=== PATIENT | female | born 1995 ===

== ENCOUNTER 2024-11-26 10:39 | Inpatient (IN) ==
[2024-11-26] MEDS ORDERED: OXYTOCIN 30 UNITS/NSS 30 UNITS/500 ML BAG IV PRN (11:53)
[2024-11-26] MEDS ORDERED: LIDOCAINE 1% LOCAL 20 ML VIAL INFIL PRN (11:53)
[2024-11-26 12:39] LABS: Hematocrit (blood only) 32.7 % (37.0-47.0); Hemoglobin 9.8 g/dl (12.0-16.0); Mean Corpuscular Hemoglobin 22.1 pg (25.0-34.0); Mean Corpuscular Volume 73.6 fL (80.0-100.0); Platelet Count 270 K/uL (130-400); RDW Standard Deviation 47.1 fL (36.4-46.3); Red Blood Count 4.44 M/uL (4.20-5.40); White Blood Count 11.84 K/ul (4.8-10.8)
[2024-11-26] MEDS: LACTATED RINGER'S 1,000 ML IV PRN (12:56)
[2024-11-27] MEDS: OXYTOCIN 30 UNITS/NSS 30 UNITS/500 ML BAG IV PRN (00:08)
[2024-11-27] MEDS ORDERED: NALOXONE HCL 0.4 MG/1 ML VIAL/CARP IV PRN (02:08)
[2024-11-27] MEDS ORDERED: BUPIVACAINE 0.25% PF 30 ML VIAL EPI STA (02:08)
[2024-11-27] MEDS ORDERED: NALBUPHINE HCL INJ 10 MG/ML AMP IV PRN (02:08)
[2024-11-27] MEDS ORDERED: NALOXONE HCL 1 MG in SODIUM CHLORIDE 0.9% 1,000 ML IV PRN (02:08)
[2024-11-27] MEDS ORDERED: LIDOCAINE 2% MPF LOCAL 5 ML VIAL EPI PRN (02:08)
[2024-11-27] MEDS ORDERED: SODIUM CHLORIDE 0.9% PF INJ 10 ML VIAL EPI PRN (02:08)
[2024-11-27] MEDS ORDERED: diphenhydrAMINE 50 MG/ML VIAL IV PRN (02:08)
[2024-11-27] MEDS ORDERED: ROPIVACAINE 0.5% PF 5 MG/ML 20 ML VIAL EPI PRN (02:08)
[2024-11-27] MEDS ORDERED: SODIUM CHLORIDE 0.9% PF INJ 10 ML VIAL EPI STA (02:08)
--- NOTE | 2024-11-27 02:08 | Anesthesiology Consultation ---
Date of Service November 27, 2024 Assessment & Plan Chart Review Chart Review: Patient NOT seen in Pre Admission Testing and Acceptable Risk for Labor Epidural Consults Requested none History Height/Weight Height: 5 ft 3 in Weight: 97.976 kg Allergies Allergy/AdvReac Type Severity Reaction Status Date / Time No Known Allergies Allergy Verified 11/24/24 14:42 Medications Home Medications Medication Instructions Recorded Confirmed Last Taken [id number]-[id number]-[id number]-FA PO 05/19/24 11/24/24 11/26/24 [ Plus] 0730 ondansetron HCl 4 mg tablet 4 mg PO Q6H PRN nausea and 05/21/24 11/24/24 Unknown vomiting #30 tabs blood sugar diagnostic (ReliOn #150 ea 07/31/24 11/24/24 Unknown Prime Test Strips) blood-glucose meter #1 ea 07/31/24 11/24/24 Unknown lancets #200 ea 07/31/24 11/24/24 Unknown Active Medications Generic Name Dose Route Start Last Admin Trade Name Freq PRN Reason Stop Dose Admin Lactated Ringer's 1,000 mls @ 125 mls/hr 11/26/24 11:53 11/27/24 01:45 Lr IV 11/28/24 11:52 999 mls/hr .Q8H PRN Infusion L&D Protocol Protocol Oxytocin 30 units in 500 mls @ 5 mls/hr 11/26/24 22:32 11/27/24 01:10 Pitocin 30 Units/Nss IV 11/28/24 22:31 0.3 units/hr .Q24H PRN 5 mls/hr Labor Induction/Augmentation Titration Protocol 0.3 UNITS/HR Past Medical History Medical History Varicella vaccination Past Family History Family History Denies family history of Ovarian cancer Breast cancer Colorectal cancer Past Surgical History Surgical History No pertinent past surgical history Social History Smoking Status: Never smoker Do You Dip or Chew Tobacco: No Hx Alcohol Use: No Hx Substance Use: No Physical Exam Vital Signs Last Vital Signs Temp 97.3 F L 11/27/24 00:11 Pulse 100 H 11/27/24 00:50 Resp 16 11/27/24 00:11 BP 125/80 11/27/24 00:50 Testing Laboratory Results 11/26/24 12:18 Blood Type O Positive 11/26/24 12:18 Antibody Screen NEGATIVE 11/26/24 12:18
[2024-11-27] MEDS: fentANYL 2 MCG/ML BUPIVacaine 0.125%-NSS 100ML BAG EPI PRN (02:45)
[2024-11-27] MEDS: LIDOCAINE 2%/EPINEPHRINE 1:200,000 20 ML PF EPI STA (02:48)
[2024-11-27] MEDS: BUPIVACAINE 0.25% PF 30 ML VIAL EPI PRN (02:48)
--- NOTE | 2024-11-27 06:18 | Delivery Summary ---
Vaginal Delivery Summary Date of Service November 27, 2024 Vaginal Delivery Summary and 2nd Degree LAC Patient had a spontaneous vaginal delivery Clinical note the patient arrived in active labor with rupture of membranes GBS negative admitted with gestational diabetes diet-controlled she progressed to first 4 cm then 6 then 8 after that she requested epidural Pitocin was then started for spacing of contractions heart rate category 1 upon delivery of the head there was no nuchal cord fluid was clear gentle traction to find the anterior shoulder was done Talib maneuver was performed including lowering the patient's head this allowed release of the anterior shoulder and then delivery of the baby gentle traction no excessive force live vigorous female cord clamped and cut cord blood obtained placenta removed IV Pitocin started second-degree tear was repaired this was small but repaired with 3-0 Vicryl sponge and instrument counts correct QBL 130 mL [facility] Vaginal Delivery Charge Delivery Type Details: and 2nd Degree LAC
[2024-11-27] MEDS ORDERED: DIPHTHER/TETAN/PERTUS Vaccine (Tdap, Adol/Adult) 0.5mL IM ONE (06:33)
[2024-11-27] MEDS ORDERED: BENZOCAINE 20% SPRY 85 APPLN/85 GM CAN EXT PRN (06:33)
[2024-11-27] MEDS ORDERED: OXYTOCIN 30 UNITS/NSS 30 UNITS/500 ML BAG IV PRN (06:33)
[2024-11-27] MEDS ORDERED: HYDROCORTISONE ACETATE 25 MG SUPP PR PRN (06:33)
[2024-11-27] MEDS: fentANYL 2 MCG/ML BUPIVacaine 0.125%-NSS 100ML BAG ONE (07:55)
[2024-11-27] MEDS: LIDOCAINE 2%/EPINEPHRINE 1:200,000 20 ML PF ONE (07:55)
[2024-11-27] MEDS: BUPIVACAINE 0.25% PF 30 ML VIAL ONE (07:55)
[2024-11-27] MEDS: SODIUM CHLORIDE 0.9% PF INJ 10 ML VIAL ONE (07:55)
--- NOTE | 2024-11-27 08:15 | Anesthesia Procedure Note ---
Date of Service November 27, 2024 Anesthesia Post Epidural Note Vital Signs Vital Signs: Temp Pulse Resp BP Pulse Ox 36.7 C 111 H 20 143/90 H 91 11/27/24 07:45 11/27/24 08:12 11/27/24 07:45 11/27/24 08:12 11/27/24 07:00 Notes Mental Status: alert / awake / arousable and participated in evaluation Patient Amnestic to Procedure: No Nausea / Vomiting: adequately controlled Pain: adequately controlled Airway Patency, RR, SpO2: stable & adequate BP & HR: stable & adequate Hydration State: stable & adequate Neuraxial Anesthesia: was administered Anesthetic Complications: no major complications apparent and Pt Satisfied with anesthetic care Epidural: Removed without complications and With tip intact
[2024-11-27] MEDS: ACETAMINOPHEN 325 MG TAB PO PRN (14:41)
[2024-11-27] MEDS: IBUPROFEN 600 MG TAB PO PRN (14:41)
[2024-11-27] MEDS: DOCUSATE SODIUM 100 MG CAP PO SCH (19:06)
[2024-11-27] MEDS: PRENATAL VITAMIN 1 TAB PO SCH (19:06)
[2024-11-28 03:50] VITALS: O2SAT 98
--- NOTE | 2024-11-28 07:36 | Obstetrical Progress Note ---
Date of Service November 28, 2024 Assessment & Plan (1) care and examination: Plan: Patient is PP day 1 post status with a small 2nd degree tear. Patient is currently stable. Will continue to monitor. Will discharge today or tomorrow. Admission and Anticipated Discharge Date Admission Date: November 26, 2024 Supervising Physician Co-Signing Physician Notes Resident Physician Supervision Note: I interviewed and examined the patient. Discussed with Dr. Christianson and agree with findings and plan as documented in the note. Any exceptions or clarifications are listed here: Doing well. STruggling with some breast feeding. Will address. Desires d/c today. Instructions given. Documented By: Maida Carrero MD, FACOG Subjective 29 yo post- day 1 s/p []. Patient speaks Creole and her sister was translating. Ambulation: ambulating normally Voiding: no voiding problems Passing Gas:: Yes Diet Tolerance:: regular diet Feeding Type:: Breast feeding. However baby currently having a hard time latching. Are considering bottle supplementation. Current Pain Level: Improved and 2/10. Resting comfortably this AM in NAD. Patient admits to a headache and has no history of migraines. Patient's BP is 106/69 this morning. Denies fevers/chills, CP/palp, SOB/cough/wheeze, N/V/D, LE pain, breast pain/dschrg, UTI Sx Review of Systems Review of Systems: as per subjective HPI Physical Exam Constitutional: WD/WN, vitals as above Respiratory: normal respiratory effort, lungs clear to auscultation Cardiovascular: RRR, no murmur, no edema Extremities: no calf tenderness and no edema Gastrointestinal (Abdomen): Percussion/Palpation: abdomen soft; abdomen nontender Skin: no rashes, warm and dry Genitourinary: uterus is 2cm above umbilicus and was firm Results & Data Vital Signs (Past 12 Hours) Vital Signs Temp Pulse Resp BP Pulse Ox O2 Del Method 11/28/24 03:36 36.6 C 88 18 106/69 98 Room Air 11/27/24 23:32 36.8 C 88 18 99/62 L 100 Room Air Laboratory Results Lab Results 11/26/24 Range/Units 12:18 WBC 11.84 H (4.8-10.8) K/ul RBC 4.44 (4.20-5.40) M/uL Hgb 9.8 L (12.0-16.0) g/dl Hct 32.7 L (37.0-47.0) % MCV 73.6 L (80.0-100.0) fL MCH 22.1 L (25.0-34.0) pg MCHC 30.0 L (32.0-36.0) g/dL RDW Std Deviation 47.1 H (36.4-46.3) fL RDW Coeff of Alley 17.9 H (11.5-14.5) % Plt Count 270 (130-400) K/uL MPV 10.6 (9.4-12.4) fL Treponema pallidum Ab Negative (Negative) Blood Type O Positive Antibody Screen NEGATIVE
[2024-11-28 07:44] VITALS: BP 127/76; PULSE 87; RESP 16; TEMP 98.1
[2024-11-28 10:32] LABS: Hematocrit (blood only) 26.8 % (37.0-47.0); Hemoglobin 8.1 g/dl (12.0-16.0); Mean Corpuscular Hemoglobin 22.4 pg (25.0-34.0); Mean Corpuscular Volume 74.0 fL (80.0-100.0); Platelet Count 253 K/uL (130-400); RDW Standard Deviation 47.8 fL (36.4-46.3); Red Blood Count 3.62 M/uL (4.20-5.40); White Blood Count 10.97 K/ul (4.8-10.8)
== END 2024-11-28 13:59 | disposition home or self-care (01) | DRG 807 ==
LOC: OPB 10:39 → 4S1 10:41 → 4E2 11-27 08:55